=== PATIENT | male | born 1990 | race Caucasian/White ===

== ENCOUNTER 2018-02-19 12:33 | Emergency (ER) | payer MEDICAID ==
[~2018-02-19] VITALS: Ht 177.8 cm; Wt 90.9 kg
[2018-02-19] MEDS ORDERED: SODIUM CHLORIDE 0.9% 1,000 ML IV ONE (12:45)
[2018-02-19] MEDS ORDERED: FentaNYL CITRATE-PF 100 MCG/2 ML VIAL IVP ONE ×2 (12:45→13:00)
[2018-02-19] MEDS ORDERED: ONDANSETRON HCL 4 MG/2 ML VIAL IVP ONE (12:45)
[2018-02-19 12:49] LABS: BASOPHILS % (AUTO) 0.4 % (0.0-2.0); EOSINOPHILS % (AUTO) 3.9 % (1.0-6.0); HEMOGLOBIN 14.9 g/dL (13.5-17.5); LYMPHOCYTES # (AUTO) 2.6 K/uL (1.0-4.8); LYMPHOCYTES % (AUTO) 23.1 % (22.0-44.0); MEAN CORPUSCULAR HEMOGLOBIN 30.2 pg (26.0-34.0); MEAN CORPUSCULAR HGB CONC 34.6 G/dL (31.0-37.0); MEAN CORPUSCULAR VOLUME 87 fL (80-100); MONOCYTES # (AUTO) 0.6 K/uL (0.1-1.0); MONOCYTES % (AUTO) 5.7 % (2.0-9.0); NEUTROPHILS # (AUTO) 7.5 K/uL (1.8-7.7); NEUTROPHILS % (AUTO) 66.9 % (40.0-70.0); PLATELET COUNT (AUTO) 184 K/uL (150-450); RED BLOOD CELL COUNT(AUTO) 4.95 MIL/uL (4.50-5.90); RED CELL DISTRIBUTION WIDTH 12.8 % (11.5-14.5)
[2018-02-19 12:57] LABS: ABG A-A DIFF O2 10.6 mmHg (10-20.0); ABG BASE EXCESS -1.5 mmol/L (-2.0-3.0); ABG CARBOXYHEMOGLOBIN 1.5 % (0.0-3.0); ABG HCO3 24.4 mmol/L (22.0-26.0); ABG METHEMOGLOBIN 0.4 % (0.0-1.5); ABG OXYGEN CONTENT 18.3 mL/dL (15.0-23.0); ABG OXYGEN SATURATION 98.4 % (95.0-98.0); ABG OXYHEMOGLOBIN 96.5 % (94.0-100.0); ABG PCO2 26 mmHg (35-45); ABG PH 7.525 (7.350-7.450); ABG TOTAL HEMOGLOBIN 13.4 G/dL (12.0-18.0); O2 DEVICE,BLOOD GAS ROOM AIR (ROOM AIR); PO2, ARTERIAL BG 107.5 mmHg (80.0-100.0); SITE, BLOOD GAS LFT RADIAL; SOURCE, BLOOD GAS ARTERIAL; TEMPERATURE, FAHRENHEIT, BG 98.6 FAHREN (96.0-98.6)
[2018-02-19 12:59] LABS: ANION GAP 17 mmol/L (8-16); CALCIUM, TOTAL 9.8 mg/dL (8.8-10.5); CARBON DIOXIDE 21 mmol/L (22-29); CHLORIDE 103 mmol/L (98-107); CREATININE 1.45 mg/dL (0.60-1.30); GLOMERULAR FILTR. RATE CALC 59 mL/min (>60); GLUCOSE,RANDOM 110 mg/dL (70-110); POTASSIUM 3.5 mmol/L (3.5-5.1); SODIUM SERUM 141 mmol/L (136-145); UREA NITROGEN, BLOOD 13 mg/dL (7-18)
[2018-02-19 13:05] LABS: ALANINE AMINOTRANSFERASE 25 U/L (12-78); ALBUMIN 4.6 g/dL (3.4-5.0); ALKALINE PHOSPHATASE 100 U/L (46-116); ASPARTATE AMINOTRANSFERASE 16 U/L (15-37); BILIRUBIN,TOTAL 0.6 mg/dL (0.1-1.0); TOTAL PROTEIN, SERUM 8.1 g/dL (6.4-8.2)
[2018-02-19] MEDS ORDERED: IOVERSOL 350 MG/ML 150 ML VIAL ONE (13:05)
[2018-02-19] MEDS ORDERED: SODIUM CHLORIDE 0.9% 100 ML ONE (13:05)
[2018-02-19] MEDS ORDERED: KETOROLAC TROMETHAMINE 30 MG/ML VIAL IVP ONE ×2 (15:45→16:30)
[2018-02-19 17:17] VITALS: BP 113/70
[2018-02-19] MEDS ORDERED: HYDROCODONE/ACETAMINOPHEN 5-325 MG TABLET PO ONE (17:30)
== END 2018-02-19 18:19 | disposition home or self-care (01) ==
LOC: EMS 12:33
DX: S06.0X0A Concussion without loss of consciousness, initial encounter (principal); S01.01XA Laceration without foreign body of scalp, initial encounter; S83.91XA Sprain of unspecified site of right knee, initial encounter; S40.021A Contusion of right upper arm, initial encounter; S70.11XA Contusion of right thigh, initial encounter; F17.210 Nicotine dependence, cigarettes, uncomplicated; W18.39XA Other fall on same level, initial encounter; Y93.89 Activity, other specified; Y92.89 Other specified places as the place of occurrence of the external cause; Y99.8 Other external cause status
CPT/HCPCS: 12002; 29505; 36415; 70450; 71045; 71260; 72070; 72100; 72125; 72170; 72193; 73060; 73090; 73130; 73552; 73562; 73590; 73610; 74160; 80053; 82805; 85025; 96374; 96375; 96376; 99291; G0480; J1885; J2405; J3010; J7030; J7050; Q9967